=== PATIENT | female | born 1975 | race Caucasian/White ===

== ENCOUNTER 2018-02-17 14:43 | Emergency (ER) | payer OTHER ==
[~2018-02-17] VITALS: Ht 154.9 cm; Wt 68.0 kg
[2018-02-17 14:52] VITALS: Ht 154.9 cm; Wt 68.0 kg
[2018-02-17 15:45] LABS: CALCIUM 8.6 mg/dL (8.5-10.1); CARBON DIOXIDE 25.8 mmol/L (21-32); CHLORIDE SERUM 102 mmol/L (98-107); CREATININE SERUM 0.7 mg/dL (0.6-1.0); GFR1 > 60 mL/min; GLUCOSE SERUM 133 mg/dL (74-106); POTASSIUM SERUM 3.6 mmol/L (3.5-5.1); SODIUM SERUM 137 mmol/L (136-145)
[2018-02-17 18:03] VITALS: BP 116/80
== END 2018-02-17 17:45 | disposition home or self-care (01) ==
LOC: ED 14:43
PROVIDERS: Emergency Medicine
DX: G40.909 Epilepsy, unspecified, not intractable, without status epilepticus (principal); R51 Headache; Z98.890 Other specified postprocedural states
CPT/HCPCS: J1885